=== PATIENT | male | born 1945 | race Caucasian/White ===

== ENCOUNTER → 2016-10-22 | Outpatient (CLI) | payer MEDICARE ==
[~2016-10-22] MED LIST: ADVIL,NUPRIN,M200 MG PO; ASPIRIN325 MG PO; LISINOPRIL20 MG PO; TUMERSAID TABL1 EACH PO
== END | disposition home or self-care (01) ==
LOC: CDC 08:23
DX: R94.31 Abnormal electrocardiogram [ECG] [EKG] (principal); G56.01 Carpal tunnel syndrome, right upper limb; M79.641 Pain in right hand
CPT/HCPCS: 93000